=== PATIENT | male | born 1995 | race Hispanic/Latino ===

== ENCOUNTER 2024-01-30 10:40 | Emergency (ER) | payer SELFPAY ==
[2024-01-30 11:05] LABS: Absolute Basophils 0.1 K/uL (0-0.5); Absolute Eosinophils 0.1 K/uL (0-0.5); Absolute Lymphocytes (CBC) 2.2 K/uL (0.7-4.9); Absolute Monocytes 0.6 K/uL (0.1-1.3); Absolute Neutrophil 4.6 K/uL (1.8-8.0); Basophils % 0.7 % (0-1.3); Hematocrit 45.9 % (39.6-49.0); Hemoglobin 15.3 g/dL (13.6-17.9); Lymphocytes % 29.4 % (15.3-44.8); MCH 28.8 pg (27.0-35.0); MCHC 33.3 g/dL (32.0-36.0); MCV 86.4 fL (80-100); MPV 8.2 fL (7.6-11.3); Monocytes % 7.7 % (3.3-12.3); Neutrophils % 61.2 % (41.7-73.7); Platelets 199 thou/uL (152-406); RBC Red Blood Cell Count 5.31 M/uL (4.33-5.43)
[2024-01-30 11:09] LABS: PT Prothrombin Time 11.2 SECONDS (9.4-12.5); PTT, Activated Partial Thromb 28.9 SECONDS (24.3-36.9)
[2024-01-30 11:16] LABS: Anion Gap 7.1 mEq/L (5.0-15.0); Potassium 4.1 mEq/L (3.5-5.1)
--- NOTE | 2024-01-30 11:30 | RAD REPORT ---
EXAM DESCRIPTION: CTAbdomen Pelvis W Contrast - 01/30/2024 11:18 am CLINICAL HISTORY: Abdominal pain. stab wound left lower quadrant COMPARISON: No comparisons TECHNIQUE: Biphasic CT imaging of the abdomen and pelvis was performed with 100 ml non-ionic IV cont rast. All CT scans are performed using dose optimization technique as appropriate and may include automated exposure control or mA/KV adjustment according to patient size. FINDINGS: The lung bases are clear. The liver, spleen, pancreas, adrenal glands and kidneys are within normal limits. Along the anterior abdominal musculature left lower quadrant small air bubbles are present both exter nal and internal to the fascia with a small focal soft tissue defect suspected (image 50/100). No obv ious evidence of intra-abdominal injury. No bowel obstruction, free air, free fluid or abscess. Moderate stool is present throughout the colon . The appendix is normal. There are a few nonspecific prominent lymph nodes in the small bowel mesen teric right lower quadrant and gastrohepatic ligament region. No fracture or aggressive bone lesion seen. IMPRESSION: No acute intra-abdominal or pelvic finding.
[2024-01-30] MEDS ORDERED: LIDOCAINE 1% 20 ML MDV ONE (11:48)
[2024-01-30] MEDS ORDERED: TDAP (DIPHTH,PERTUSS(ACELL),TET VAC) 0.5 ML VIAL IMVAC ONE (12:17)
--- NOTE | 2024-01-30 13:30 | ER ---
Nurse's Notes [facility] Name: Rajesh Miller Age: 29 yrs Sex: Male : 1995 Arrival Date: 01/30/2024 Time: 10:40 Bed 8 Private MD: Diagnosis: Puncture wound of abdominal wall with foreign body, left lower quadrant without penetration into peritoneal cavity, initial encounter Presentation: 01/29 10:44 Chief complaint: EMS states: patient was at work, repelling down a rope, when a knife tm6 on another rope penetrated his left lower quadrant. EMS cleaned with peroxide and bandaged. Minimal bleeding. Coronavirus screen: Vaccine status: Patient reports receiving the 2nd dose of the covid vaccine. Ebola Screen: Patient negative for fever greater than or equal to 101.5 degrees Fahrenheit, and additional compatible Ebola Virus Disease symptoms Patient denies exposure to infectious person. Patient denies travel to an Ebola-affected area in the 21 days before illness onset. No symptoms or risks identified at this time. Initial Sepsis Screen: Does the patient meet any 2 criteria? No. Patient's initial sepsis screen is negative. Does the patient have a suspected source of infection? No. Patient's initial sepsis screen is negative. Risk Assessment: Do you want to hurt yourself or someone else? Patient reports no desire to harm self or others. Onset of symptoms was January 30, 2024. 10:44 Method Of Arrival: EMS: [facility] tm6 10:44 Acuity: DO 3 tm6 Triage Assessment: 10:46 General: Appears in no apparent distress. Behavior is calm, cooperative. Pain: tm6 Complains of pain in left lower quadrant Pain does not radiate. Pain currently is 3 out of 10 on a pain scale. Pain began 1 hour ago. EENT: No signs and/or symptoms were reported regarding the EENT system. Neuro: Level of Consciousness is awake, alert, obeys commands, Oriented to person, place, time, situation. Cardiovascular: Patient's skin is warm and dry. Respiratory: Airway is patent Respiratory effort is even, unlabored, Respiratory pattern is regular, symmetrical. GI: Abdomen is flat, non-distended, stab wound to LLQ, about 2.5cm. No bleeding. : No signs and/or symptoms were reported regarding the genitourinary system. Derm: Wound noted left lower quadrant Wound is stab wound to LLQ, about 2.5cm, no bleeding. Musculoskeletal: No signs and/or symptoms reported regarding the musculoskeletal system. Injury Description: Laceration sustained to left lower quadrant is clean, full thickness, 0.5 to 2.5 cm long, not bleeding, was sustained 30-60 minutes ago. no active bleeding noted at this time. Historical: - Allergies: 10:46 No Known Allergies; tm6 - PMHx: 10:46 None; tm6 - PSHx: 10:46 None; tm6 - Immunization history:: Client reports receiving the 2nd dose of the Covid vaccine. - Infectious Disease History:: Denies. - Social history:: Smoking status: Patient denies any tobacco usage or history of. Patient/guardian denies using alcohol. - Family history:: not pertinent. - Hospitalizations: : No recent hospitalization is reported. Screenin:49 [facility] ED Fall Risk Assessment (Adult) History of falling in the last 3 months, tm6 including since admission No falls in past 3 months (0 pts) Confusion or Disorientation No (0 pts) Intoxicated or Sedated No (0 pts) Impaired Gait No (0 pts) Mobility Assist Device Used No (0 pt) Altered Elimination No (0 pt) Score/Fall Risk Level 0 - 2 = Low Risk Oriented to surroundings, Maintained a safe environment, Educated pt \T\ family on fall prevention, incl call for assistance when getting out of bed. Abuse screen: Denies threats or abuse. Denies injuries from another. Nutritional screening: No deficits noted. Tuberculosis screening: No symptoms or risk factors identified. Assessment: 10:49 Reassessment: see triage assessment. tm6 11:52 Reassessment: Patient appears in no apparent distress at this time. Patient and/or tm6 family updated on plan of care and expected duration. Pain level reassessed. Patient is alert, oriented x 3, equal unlabored respirations, skin warm/dry/pink. 13:02 Reassessment: Patient appears in no apparent distress at this time. Patient and/or tm6 family updated on plan of care and expected duration. Pain level reassessed. Patient is alert, oriented x 3, equal unlabored respirations, skin warm/dry/pink. 13:50 Reassessment: Patient and/or family updated on plan of care and expected duration. Pain tm6 level reassessed. Patient is alert, oriented x 3, equal unlabored respirations, skin warm/dry/pink. Vital Signs: 10:43 BP 145 / 86; Pulse 87; Resp 19; Temp 99(O); Pulse Ox 100% on R/A; Weight 106.59 kg; tm6 Height 6 ft. 0 in. ; Pain 3/10; 11:51 Pulse 95; Pulse Ox 100% on R/A; Pain 3/10; tm6 11:57 BP 136 / 87; tm6 13:02 BP 142 / 73; Pulse 85; Pulse Ox 99% on R/A; tm6 13:50 BP 142 / 83; Pulse 85; Resp 19; Temp 98.7(O); Pulse Ox 99% on R/A; Pain 2/10; tm6 10:43 Body Mass Index 31.87 (106.59 kg, 182.88 cm) tm6 10:43 Pain Scale: Adult tm6 11:51 Pain Scale: Adult tm6 13:50 Pain Scale: Adult tm6 ED Course: 10:41 Patient arrived in ED. rn 10:41 Braden Aguilera MD is Attending Physician. rn 10:42 Miranda Arora RN is Primary Nurse. tm6 10:46 Triage completed. tm6 10:46 Arm band placed on right wrist. tm6 10:49 Patient has correct armband on for positive identification. Bed in low position. Call tm6 light in reach. Side rails up X2. Provided Education on: use of call wei. Client placed on continuous cardiac and pulse oximetry monitoring. NIBP monitoring applied. bus monitor on. Pulse ox on. NIBP on. Door closed. Noise minimized. Warm blanket given. Pillow given. 10:57 Protime (+inr) Sent. tm6 10:57 Ptt, Activated Sent. tm6 10:57 Basic Metabolic Panel Sent. tm6 10:57 CBC with Diff Sent. tm6 10:57 Inserted saline lock: 20 gauge in right antecubital area, using aseptic technique. tm6 Blood collected. Flushed with 10 mL NS. 11:20 CT Abd/Pelvis - IV Contrast Only In Process Unspecified. EDMS 13:50 No provider procedures requiring assistance completed. IV discontinued, intact, tm6 bleeding controlled, No redness/swelling at site. Pressure dressing applied. Administered Medications: 12:14 Drug: Lidocaine Infiltration (1 %) 1 vials 20 ml Infiltration once; to bedside {Note: tm6 administered by .} Volume: 20 ml; Route: Infiltration; 12:33 Follow up: Response: No adverse reaction tm6 12:15 Not Given (Product Out of Stock): tetanus-diphtheria toxoidadult 0.5 ml IM once; tm6 Provide Vaccine Information Statement (VIS). 12:33 Drug: Boostrix Tdap IM 0.5 ml IM once; as a single dose Route: IM; Site: left deltoid; tm6 13:51 Follow up: Response: No adverse reaction tm6 Medication: 12:33 Vaccine Information Statement (VIS) provided today. Questions and/or concerns tm6 addressed. VIS edition date: January 15, 2021. Outcome: 13:29 Discharge ordered by . rn 13:50 Discharged to home ambulatory, with family, tm6 13:50 Condition: stable 13:50 Discharge instructions given to patient, family, Instructed on discharge instructions, follow up and referral plans. medication usage, Demonstrated understanding of instructions, follow-up care, medications, Prescriptions given X 1, 13:51 Patient left the ED. tm6 Signatures: Dispatcher [employer] EDMS Braden Aguilera MD MD rn Masterson, Tawney, RN RN tm6 Corrections: (The following items were deleted from the chart) 12:34 10:49 VIS not applicable for this client. tm6 tm6
--- NOTE | 2024-01-30 13:30 | EDPHYS ---
Physician Documentation [facility] Name: Rajesh Miller Age: 29 yrs Sex: Male : 1995 Arrival Date: 01/30/2024 Time: 10:40 Bed 8 Private MD: ED Physician Braden Aguilera HPI: 01/29 12:12 This 29 yrs old Male presents to ER via EMS with complaints of Stab Wound To Abdomen. rn 12:12 Trauma demographics: Location of Injury: The injury occurred at work. Mechanism of rn injury: Penetrating trauma:. Associated injuries: The patient sustained injury to the abdomen. Onset: The symptoms/episode began/occurred just prior to arrival. Patient reports was climbing down from [place], had a saw with the blade that accidentally punctured his left lower abdomen on his way down. Reports pain only at the site of puncture. No other injury. Last tetanus shot was approximately 6 years ago.. Historical: - Allergies: 10:46 No Known Allergies; tm6 - PMHx: 10:46 None; tm6 - PSHx: 10:46 None; tm6 - Immunization history:: Client reports receiving the 2nd dose of the Covid vaccine. - Infectious Disease History:: Denies. - Social history:: Smoking status: Patient denies any tobacco usage or history of. Patient/guardian denies using alcohol. - Family history:: not pertinent. - Hospitalizations: : No recent hospitalization is reported. ROS: 12:13 Constitutional: Negative for fever, chills, and weight loss, Cardiovascular: Negative rn for chest pain, palpitations, and edema, Respiratory: Negative for shortness of breath, cough, wheezing, and pleuritic chest pain, Abdomen/GI: Positive for penetrating injury to the left lower quadrant Exam: 12:21 Constitutional: This is a well developed, well nourished patient who is awake, alert, rn and in no acute distress. Abdomen/GI: Soft, mild tenderness at site of puncture wound approx 5 cm. Primarily superficial wound with subcutaneous fat exposed, no active bleeding, not contaminated and no foreign bodies. Vital Signs: 10:43 BP 145 / 86; Pulse 87; Resp 19; Temp 99(O); Pulse Ox 100% on R/A; Weight 106.59 kg; tm6 Height 6 ft. 0 in. ; Pain 3/10; 11:51 Pulse 95; Pulse Ox 100% on R/A; Pain 3/10; tm6 11:57 BP 136 / 87; tm6 13:02 BP 142 / 73; Pulse 85; Pulse Ox 99% on R/A; tm6 13:50 BP 142 / 83; Pulse 85; Resp 19; Temp 98.7(O); Pulse Ox 99% on R/A; Pain 2/10; tm6 10:43 Body Mass Index 31.87 (106.59 kg, 182.88 cm) tm6 10:43 Pain Scale: Adult tm6 11:51 Pain Scale: Adult tm6 13:50 Pain Scale: Adult tm6 Laceration: 13:25 Wound Repair of 5cm ( 2.0in ) subcutaneous laceration to left lower quadrant. Distal rn neuro/vascular/tendon intact. Anesthesia: Wound infiltrated with 5 mls of 1% lidocaine. Wound prep: Extensive cleansing, Wound explored, Copious irrigation. Subcutaneous tissue closed with 3 3-0 gut using interrupted sutures and sterile technique. Dressed with 4x4's. Patient tolerated well. MDM: 10:41 Patient medically screened. rn 13:25 Differential diagnosis: intra-abdominal injury, Laceration, subcutaneous laceration, rn intraperitoneal laceration. Data reviewed: vital signs, nurses notes, radiologic studies, CT scan, and as a result, I will discharge patient. Counseling: I had a detailed discussion with the patient and/or guardian regarding the historical points, exam findings, and any diagnostic results supporting the discharge/admit diagnosis, radiology results, the need for outpatient follow up, to return to the emergency department if symptoms worsen or persist or if there are any questions or concerns that arise at home. Response to treatment: the patient's symptoms have markedly improved after treatment, and as a result, I will discharge patient. Special discussion: I discussed with the patient/guardian in detail that at this point there is no indication for admission to the hospital. It is understood, however, that if the symptoms persist or worsen the patient needs to return immediately for re-evaluation. 01/29 10:42 Order name: CBC with Diff; Complete Time: 11:30 rn 01/29 10:42 Order name: Basic Metabolic Panel; Complete Time: 11:30 rn 01/29 10:42 Order name: Protime (+inr); Complete Time: 11:30 rn 01/29 10:42 Order name: Ptt, Activated; Complete Time: 11:30 rn 01/29 10:42 Order name: CT Abd/Pelvis - IV Contrast Only; Complete Time: 11:39 rn 01/29 10:42 Order name: IV Start; Complete Time: 10:57 rn 01/29 11:46 Order name: Suture Tray at Bedside; Complete Time: 11:47 rn Administered Medications: 12:14 Drug: Lidocaine Infiltration (1 %) 1 vials 20 ml Infiltration once; to bedside {Note: tm6 administered by MD.} Volume: 20 ml; Route: Infiltration; 12:33 Follow up: Response: No adverse reaction tm6 12:15 Not Given (Product Out of Stock): tetanus-diphtheria toxoidadult 0.5 ml IM once; tm6 Provide Vaccine Information Statement (VIS). 12:33 Drug: Boostrix Tdap IM 0.5 ml IM once; as a single dose Route: IM; Site: left deltoid; tm6 13:51 Follow up: Response: No adverse reaction tm6 Disposition Summary: 01/30/24 13:29 Discharge Ordered Notes: Location: Home rn Problem: new rn Symptoms: have improved rn Condition: Stable rn Diagnosis - Puncture wound of abdominal wall with foreign body, left lower quadrant without rn penetration into peritoneal cavity, initial encounter Followup: rn - With: Emergency Department - When: 14 days - Reason: Staple/Suture removal Discharge Instructions: - Discharge Summary Sheet rn - Stab Wound rn Forms: - Medication Reconciliation Form rn - Antibiotic rn endocrinology - Prescription Opioid Use rn - Patient Portal Instructions rn - Leadership Thank You Letter rn - Work release form tm6 Prescriptions: - Cephalexin 500 mg Oral Capsule - take 1 capsule ORAL route every 12 hours for 10 days; 20 capsule; Refills: 0, rn Product Selection Permitted Signatures: Dispatcher [employer] Braden Alfaro MD MD rn Masterson, Tawney, RN RN tm6 Corrections: (The following items were deleted from the chart) 13:25 12:21 Constitutional: This is a well developed, well nourished patient who is awake, rn alert, and in no acute distress. Abdomen/GI: Soft, mild tenderness at site of puncture wound. Primarily superficial wound with subcutaneous fat exposed, no active bleeding, not contaminated and no foreign bodies. rn
[2024-01-30 14:17] VITALS: O2SAT 99
[2024-01-30 14:18] VITALS: BP 142/83; TEMP 98.7
== END 2024-01-30 13:51 | disposition home or self-care (01) ==
LOC: ER 10:40
PROC: 0HQ7XZZ Repair Abdomen Skin, External Approach (ICD-10-PCS; principal; 2024-01-30)
DX: S31.134A Puncture wound of abdominal wall without foreign body, left lower quadrant without penetration into peritoneal cavity, initial encounter (principal)
CPT/HCPCS: 36415; 74177; 80048; 85025; 85610; 85730; J2001; Q9967